=== PATIENT | male | born 1960 | race Two or more races ===

== ENCOUNTER 2017-03-01 18:17 | Inpatient (IN) | payer MEDICAID ==
[~2017-03-01] VITALS: Ht 167.6 cm; Wt 57.3 kg
[2017-03-01 19:11] LABS: Basophils # (auto) 0 uL; Basophils % (auto) 0.5 % (0.0-2.0); CONDITION Y; Eosinophils # (auto) 0 uL; Hematocrit 42.5 % (41.0-53.0); Hemoglobin 14.3 g/dL (13.5-17.5); Lymphocytes # (auto) 0.7 uL; Lymphocytes % (auto) 6.2 % (10.0-50.0); Mean Corpuscular Hemoglobin 30.6 pg (28.0-32.0); Mean Corpuscular Hgb Conc. 33.7 g/dL (32.0-36.0); Mean Corpuscular Volume 90.8 fL (80.0-100.0); Mean Platelet Volume 9.3 fL (7.4-10.4); Monocytes # (auto) 0.2 uL; Monocytes % (auto) 2.2 % (0.0-12.0); Neutrophils # (auto) 9.8 uL; Neutrophils % (auto) 91.1 % (37.0-80.0); Platelet Count (auto) 297 10^3/uL (140-450); Red Cell Distribution Width 14.9 % (11.6-16.0); White Blood Cell 10.7 10^3/uL (4.4-10.8)
[2017-03-01 19:38] LABS: Albumin 3.9 g/dL (3.4-5.0); Anion Gap 11 (5-15); Aspartate Aminotransferase 18 U/L (15-37); BUN/Creatinine Ratio 15.7; Blood Urea Nitrogen 20 mg/dL (7-18); Calcium 8.8 mg/dL (8.5-10.1); Carbon Dioxide 23 mmol/L (21-32); Chloride 120 mmol/L (98-107); GFR African American 75 mL/min; GFR Non-African American 62 mL/min; Glucose 131 mg/dL (74-106); Potassium 4.4 mmol/L (3.5-5.1); Sodium 154 mmol/L (136-145)
[2017-03-01 19:41] LABS: Alkaline Phosphatase 62 U/L (45-117); Bilirubin, Total 0.7 mg/dL (0.2-1.0); Total Protein 6.8 g/dL (6.4-8.2)
[2017-03-01] MEDS ORDERED: SODIUM CHLORIDE 0.9% 1,000 ML IV ONE (20:30)
[2017-03-02] MEDS ORDERED: LORazepam 2MG/ML-1ML VIAL ONE (03:17)
[2017-03-02] MEDS ORDERED: LORazepam 2MG/ML-1ML VIAL IV ONE (03:30)
[2017-03-02 04:22] LABS: Urine Bilirubin Negative (Negative); Urine Blood Negative /uL (Negative); Urine Color Yellow (Yellow); Urine Glucose Normal (Normal); Urine Mucus FEW (None Seen); Urine Nitrite Negative (Negative); Urine RBC 2 /hpf (0 - 3); Urine Squamous Epithelial Cell FEW /hpf (<5); Urine Urobilinogen Normal (Negative); Urine pH 5.5 (5.0-8.0)
[2017-03-02 04:23] LABS: Urine Ketone 1+ (Negative)
[2017-03-02] MEDS ORDERED: ACETAMINOPHEN 325 MG TAB PO PRN (05:15)
[2017-03-02] MEDS ORDERED: ONDANSETRON HCL 4 MG/2 ML VIAL IV PRN (05:15)
[2017-03-02] MEDS ORDERED: MORPHINE SULF INJ 2 MG/ML SYRINGE 1ML IV PRN (05:15)
[2017-03-02] MEDS ORDERED: HYDROcodone-ACET 5/325MG TAB PO PRN (05:15)
[2017-03-02] MEDS ORDERED: NITROGLYCERIN 0.4 MG SL TAB SL PRN (05:15)
[2017-03-02] MEDS: SODIUM CHLORIDE 0.9% 1,000 ML IV SCH ×2 (05:33→18:39)
[2017-03-02] MEDS: ENOXAPARIN SOD 40 MG/0.4 ML SYRINGE SC SCH (10:05)
[2017-03-02] MEDS: FOLIC ACID 1 MG TAB PO SCH (10:05)
[2017-03-02] MEDS: FAMOTIDINE 20 MG TAB PO SCH ×2 (10:05→22:02)
[2017-03-02] MEDS: THIAMINE HCL 100 MG TAB PO SCH (10:05)
[2017-03-02] MEDS ORDERED: DEXTROSE (50%) 50ML SYRG IV PRN (13:30)
[2017-03-02] MEDS: InsuLIN REG 1unit/0.01ml Soln (100units/ml) SC SCH ×2 (17:00→22:00)
[2017-03-02] MEDS: ACCU-CHEK COMFORT CURVE STRIP VI SCH ×2 (17:08→22:02)
[2017-03-02] MEDS ORDERED: LORazepam 2MG/ML-1ML VIAL IV PRN (21:15)
[2017-03-02] MEDS ORDERED: ASPirin 81 mg TAB PO ONE (21:30)
[2017-03-02] MEDS: THIAMINE INJ 100 MG, MULTIPLE VITAMIN 10 ML, FOLIC ACID 1 MG, MAGNESIUM SULF SDV 50% 8 ... IV SCH ×5 (22:20)
[2017-03-03] MEDS: InsuLIN REG 1unit/0.01ml Soln (100units/ml) SC SCH ×4 (06:18→22:00)
[2017-03-03] MEDS: ACCU-CHEK COMFORT CURVE STRIP VI SCH ×4 (06:19→22:00)
[2017-03-03 06:44] LABS: Basophils # (auto) 0 uL; Basophils % (auto) 0.6 % (0.0-2.0); CONDITION Y; Eosinophils # (auto) 0.2 uL; Hematocrit 42.3 % (41.0-53.0); Hemoglobin 14.2 g/dL (13.5-17.5); Mean Corpuscular Hemoglobin 31.4 pg (28.0-32.0); Mean Corpuscular Hgb Conc. 33.5 g/dL (32.0-36.0); Mean Corpuscular Volume 93.7 fL (80.0-100.0); Mean Platelet Volume 9.2 fL (7.4-10.4); Monocytes # (auto) 0.5 uL; Monocytes % (auto) 6.6 % (0.0-12.0); Neutrophils # (auto) 4.9 uL; Neutrophils % (auto) 64.8 % (37.0-80.0); Platelet Count (auto) 230 10^3/uL (140-450); Red Cell Distribution Width 14.6 % (11.6-16.0); White Blood Cell 7.6 10^3/uL (4.4-10.8)
[2017-03-03 07:20] LABS: Vitamin B12 334 pg/mL (211-911)
[2017-03-03 07:22] LABS: Albumin 3.4 g/dL (3.4-5.0); BUN/Creatinine Ratio 22.1; Bilirubin, Total 0.7 mg/dL (0.2-1.0); Calcium 8.4 mg/dL (8.5-10.1); Potassium 3.9 mmol/L (3.5-5.1); Total Protein 6.1 g/dL (6.4-8.2)
[2017-03-03 07:26] LABS: Temperature: 23.1 C (20.0-25.0)
[2017-03-03] MEDS: SODIUM CHLORIDE 0.9% 1,000 ML IV SCH ×2 (08:12→21:33)
[2017-03-03] MEDS ORDERED: ASPirin 81 mg TAB PO SCH (10:00)
[2017-03-03] MEDS: FOLIC ACID 1 MG TAB PO SCH (10:30)
[2017-03-03] MEDS: THIAMINE HCL 100 MG TAB PO SCH (10:30)
[2017-03-03] MEDS: FAMOTIDINE 20 MG TAB PO SCH ×2 (10:30→22:00)
[2017-03-03] MEDS: ENOXAPARIN SOD 40 MG/0.4 ML SYRINGE SC SCH (10:30)
[2017-03-04] VITALS (7 sets, daily range): BP systolic 108–116; BP diastolic 61–80
[2017-03-04] MEDS ORDERED: LORazepam 2MG/ML-1ML VIAL IM ONE (00:01)
[2017-03-04] MEDS ORDERED: HALOPERIDOL LACTATE 5 MG/ML INJ VIAL IM ONE (00:01)
[2017-03-04] MEDS ORDERED: diphenhdrAMINE HCL 50 MG/1 ML VL IM ONE (00:01)
[2017-03-04] MEDS ORDERED: THIAMINE HCL 100 MG/ML 2ML VIAL ONE (02:14)
[2017-03-04] MEDS ORDERED: MVI in SODIUM CHLORIDE 0.9% 1,010 ML ONE (02:14)
[2017-03-04] MEDS: THIAMINE INJ 100 MG, MULTIPLE VITAMIN 10 ML, FOLIC ACID 1 MG, MAGNESIUM SULF SDV 50% 8 ... IV SCH ×10 (03:21→23:13)
[2017-03-04 05:54] LABS: BUN/Creatinine Ratio 16.7; Calcium 8.2 mg/dL (8.5-10.1); Potassium 3.5 mmol/L (3.5-5.1)
[2017-03-04] MEDS: InsuLIN REG 1unit/0.01ml Soln (100units/ml) SC SCH ×4 (07:00→21:26)
[2017-03-04] MEDS: ACCU-CHEK COMFORT CURVE STRIP VI SCH ×4 (07:00→21:26)
[2017-03-04] MEDS: THIAMINE HCL 100 MG TAB PO SCH (10:00)
[2017-03-04] MEDS: FAMOTIDINE 20 MG TAB PO SCH ×2 (10:00→21:26)
[2017-03-04] MEDS: ENOXAPARIN SOD 40 MG/0.4 ML SYRINGE SC SCH (10:00)
[2017-03-04] MEDS: FOLIC ACID 1 MG TAB PO SCH (10:00)
[2017-03-04] MEDS: SODIUM CHLORIDE 0.9% 1,000 ML IV SCH ×2 (10:35→23:55)
[2017-03-04] MEDS ORDERED: LORazepam 2MG/ML-1ML VIAL IV PRN (11:45)
[2017-03-05 05:18] VITALS: BP 118/78
[2017-03-05] MEDS: InsuLIN REG 1unit/0.01ml Soln (100units/ml) SC SCH ×2 (06:18→11:21)
[2017-03-05] MEDS: ACCU-CHEK COMFORT CURVE STRIP VI SCH ×2 (06:18→11:21)
[2017-03-05 06:54] LABS: Potassium 3.7 mmol/L (3.5-5.1)
[2017-03-05 06:58] LABS: BUN/Creatinine Ratio 10.4; Calcium 8.2 mg/dL (8.5-10.1)
[2017-03-05] MEDS: FAMOTIDINE 20 MG TAB PO SCH (09:38)
[2017-03-05] MEDS: THIAMINE HCL 100 MG TAB PO SCH (09:38)
[2017-03-05] MEDS: ENOXAPARIN SOD 40 MG/0.4 ML SYRINGE SC SCH (09:39)
[2017-03-05] MEDS: FOLIC ACID 1 MG TAB PO SCH (09:39)
[2017-03-05] MEDS ORDERED: THIA100T11 PO (10:40)
[2017-03-05 13:00] VITALS: BP 130/87
[2017-03-05] MEDS: SODIUM CHLORIDE 0.9% 1,000 ML IV SCH (13:15)
== END 2017-03-05 14:25 | disposition home or self-care (01) | DRG 52 ==
LOC: ER 18:30 → TELE 18:31 → TELE-WESTW 03-03 23:55
PROVIDERS: ADMIT Nurse Practitioner; ATTEND Nurse Practitioner Acute Care
DX: G92 Toxic encephalopathy (principal); E87.0 Hyperosmolality and hypernatremia; E11.21 Type 2 diabetes mellitus with diabetic nephropathy; F19.10 Other psychoactive substance abuse, uncomplicated; F10.239 Alcohol dependence with withdrawal, unspecified; E86.0 Dehydration; F17.200 Nicotine dependence, unspecified, uncomplicated; N18.2 Chronic kidney disease, stage 2 (mild); E11.22 Type 2 diabetes mellitus with diabetic chronic kidney disease; F15.10 Other stimulant abuse, uncomplicated; G40.909 Epilepsy, unspecified, not intractable, without status epilepticus; J44.9 Chronic obstructive pulmonary disease, unspecified; Z59.0 Homelessness; Z71.89 Other specified counseling; Z90.89 Acquired absence of other organs; J32.0 Chronic maxillary sinusitis
CPT/HCPCS: 36415; 51702; 70450; 70551; 71010; 80048; 80053; 80061; 80307; 80320; 81001; 82607; 82746; 82962; 83036; 84439; 84443; 85025; 93005; 93306; 93886; 95819; 96361; 96374

== ENCOUNTER 2017-03-12 11:38 | Emergency (ER) | payer MEDICAID ==
[~2017-03-12] VITALS: Ht 182.9 cm; Wt 65.8 kg
[~2017-03-12 11:38] MED LIST: THIA100T11 PO
[2017-03-12 13:21] VITALS: BP 117/61
[2017-03-12 13:30] LABS: Basophils # (auto) 0.1 uL; Basophils % (auto) 0.7 % (0.0-2.0); CONDITION Y; Eosinophils # (auto) 0.2 uL; Eosinophils % (auto) 2.3 % (0.0-7.0); Hematocrit 47.3 % (41.0-53.0); Hemoglobin 15.6 g/dL (13.5-17.5); Lymphocytes % (auto) 32.7 % (10.0-50.0); Mean Corpuscular Hemoglobin 30.9 pg (28.0-32.0); Mean Corpuscular Volume 93.5 fL (80.0-100.0); Mean Platelet Volume 9.7 fL (7.4-10.4); Monocytes # (auto) 0.8 uL; Monocytes % (auto) 8.6 % (0.0-12.0); Neutrophils # (auto) 5.1 uL; Neutrophils % (auto) 55.7 % (37.0-80.0); Platelet Count (auto) 301 10^3/uL (140-450); Red Cell Distribution Width 14.8 % (11.6-16.0); White Blood Cell 9.1 10^3/uL (4.4-10.8)
[2017-03-12 13:55] LABS: Albumin 3.7 g/dL (3.4-5.0); Alkaline Phosphatase 61 U/L (45-117); Anion Gap 8 (5-15); Aspartate Aminotransferase 9 U/L (15-37); Bilirubin, Total 0.3 mg/dL (0.2-1.0); Blood Urea Nitrogen 22 mg/dL (7-18); Calcium 8.9 mg/dL (8.5-10.1); Carbon Dioxide 32 mmol/L (21-32); Chloride 102 mmol/L (98-107); GFR African American 147 mL/min; GFR Non-African American 121 mL/min; Glucose 85 mg/dL (74-106); Potassium 4.5 mmol/L (3.5-5.1); Sodium 142 mmol/L (136-145); Total Protein 7.2 g/dL (6.4-8.2)
== END 2017-03-12 14:49 | disposition home or self-care (01) ==
LOC: EDBD 11:38 → ER 11:45
DX: G45.9 Transient cerebral ischemic attack, unspecified (principal); F15.10 Other stimulant abuse, uncomplicated; Z88.8 Allergy status to other drugs, medicaments and biological substances; Z79.899 Other long term (current) drug therapy
CPT/HCPCS: 36415; 70450; 80053; 80307; 80320; 82962; 84484; 85025; 93005

== ENCOUNTER 2018-02-13 11:00 | Inpatient (IN) | payer MEDICAID ==
[~2018-02-13] VITALS: Ht 185.4 cm; Wt 67.4 kg
[~2018-02-13 11:00] MED LIST changes: +THIA100T10 PO; -THIA100T11 PO
[2018-02-13] MEDS ORDERED: SODIUM CHLORIDE 0.9% 1,000 ML IV ONE ×2 (11:06)
[2018-02-13 13:20] LABS: Basophils # (auto) 0 uL; Basophils % (auto) 0.5 % (0.0-2.0); Eosinophils # (auto) 0.1 uL; Eosinophils % (auto) 1.7 % (0.0-7.0); Hematocrit 41.3 % (41.0-53.0); Hemoglobin 13.7 g/dL (13.5-17.5); Lymphocytes # (auto) 1.8 uL; Lymphocytes % (auto) 36.4 % (10.0-50.0); Mean Corpuscular Hemoglobin 30.6 pg (28.0-32.0); Mean Corpuscular Hgb Conc. 33.1 g/dL (32.0-36.0); Mean Corpuscular Volume 92.4 fL (80.0-100.0); Monocytes # (auto) 0.5 uL; Monocytes % (auto) 9.6 % (0.0-12.0); Neutrophils # (auto) 2.6 uL; Neutrophils % (auto) 51.8 % (37.0-80.0); Nucleated Red Blood Cells % 0.2 %; Platelet Count (auto) 199 10^3/uL (140-450); Red Blood Cells 4.47 10^6/uL (4.5-5.90); Red Cell Distribution Width 14.4 % (11.8-14.3)
[2018-02-13 13:39] LABS: Alanine Aminotransferase 18 U/L (16-61); Albumin 3.4 g/dL (3.4-5.0); Alkaline Phosphatase 44 U/L (45-117); Anion Gap 8 (5-15); Aspartate Aminotransferase 10 U/L (15-37); BUN/Creatinine Ratio 17.4; Bilirubin, Total 1.1 mg/dL (0.2-1.0); Blood Urea Nitrogen 15 mg/dL (7-18); Calcium 7.9 mg/dL (8.5-10.1); Carbon Dioxide 25 mmol/L (21-32); Chloride 111 mmol/L (98-107); GFR African American 117 mL/min; GFR Non-African American 97 mL/min; Glucose 86 mg/dL (74-106); Sodium 144 mmol/L (136-145); Total Protein 6.1 g/dL (6.4-8.2)
[2018-02-13 13:41] LABS: INR 1.03 (0.9-1.15); Partial Thromboplastin Time 28.6 sec (23.78-33.04)
[2018-02-13] MEDS ORDERED: FOLIC ACID 1 MG in D5W 5% 50 ML IV ONE (15:00)
[2018-02-13] MEDS ORDERED: THIAMINE 100mg/ml INJ (200mg/2ml VIAL) IV ONE (15:00)
[2018-02-13] MEDS: SODIUM CHLORIDE 0.9% 1,000 ML IV SCH ×2 (15:51→21:56)
[2018-02-13 21:32] VITALS: BP 128/82
[2018-02-13 23:00] VITALS: BP 124/89
[2018-02-14] MEDS ORDERED: LORazepam 0.5 MG TAB PO PRN
[2018-02-14 04:44] LABS: Urine WBC None Seen /hpf (0 - 3)
[2018-02-14 05:02] LABS: Urine Bacteria NONE SEEN /hpf (None Seen); Urine Blood Negative /uL (Negative); Urine Specific Gravity 1.008 (1.001-1.035)
[2018-02-14 05:12] VITALS: BP 118/63
[2018-02-14 05:16] LABS: Alcohol, Urine < 3.0 mg/dL (0-5); Amphetamine Screen, Urine NEGATIVE (NEGATIVE); Barbiturate Scree,Urine NEGATIVE (NEGATIVE); Benzodiazephine Screen, Urine NEGATIVE (NEGATIVE); Cannabinoid Screen, Urine NEGATIVE (NEGATIVE); Cocaine Screen, Urine NEGATIVE (NEGATIVE); Opiate Scree,Urine NEGATIVE (NEGATIVE); Phencyclidine Screen, Urine NEGATIVE (NEGATIVE)
[2018-02-14 07:40] LABS: Basophils # (auto) 0 uL; Basophils % (auto) 0.5 % (0.0-2.0); Eosinophils # (auto) 0.1 uL; Eosinophils % (auto) 1.2 % (0.0-7.0); Hematocrit 41.3 % (41.0-53.0); Hemoglobin 14.4 g/dL (13.5-17.5); Lymphocytes # (auto) 1.9 uL; Mean Corpuscular Hemoglobin 31.9 pg (28.0-32.0); Mean Corpuscular Hgb Conc. 34.9 g/dL (32.0-36.0); Mean Corpuscular Volume 91.5 fL (80.0-100.0); Monocytes # (auto) 0.6 uL; Monocytes % (auto) 8.1 % (0.0-12.0); Neutrophils # (auto) 4.4 uL; Neutrophils % (auto) 63.2 % (37.0-80.0); Nucleated Red Blood Cells % 0.3 %; Platelet Count (auto) 210 10^3/uL (140-450); Red Blood Cells 4.52 10^6/uL (4.5-5.90); Red Cell Distribution Width 14.1 % (11.8-14.3); White Blood Cell 6.9 10^3/uL (4.4-10.8)
[2018-02-14 07:57] LABS: Albumin 3.7 g/dL (3.4-5.0); BUN/Creatinine Ratio 12.5; Bilirubin, Total 1.4 mg/dL (0.2-1.0); Calcium 8.2 mg/dL (8.5-10.1); Magnesium 2.2 mg/dL (1.6-2.6); Phosphorus 2.4 mg/dL (2.5-4.90); Potassium 3.4 mmol/L (3.5-5.1); Total Protein 6.5 g/dL (6.4-8.2)
[2018-02-14 09:00] VITALS: BP_SYST 112; BP_SYST 130; BP_DIAS 56; BP_DIAS 80
[2018-02-14] MEDS: THIAMINE 100mg/ml INJ (200mg/2ml VIAL) IV SCH (11:09)
[2018-02-14] MEDS: SODIUM CHLORIDE 0.9% 1,000 ML IV SCH ×2 (12:17→19:42)
[2018-02-14 13:00] VITALS: BP_SYST 126; BP_SYST 99; BP_DIAS 59; BP_DIAS 83
[2018-02-14] MEDS: FOLIC ACID 1 MG in D5W 5% 50 ML IV SCH (13:16)
[2018-02-14] MEDS ORDERED: POTASSIUM CHL 20 Meq TABLET PO ONE (13:30)
[2018-02-14] MEDS ORDERED: HALOPERIDOL LACTATE 5 MG/ML INJ VIAL IM PRN (13:30)
[2018-02-14] MEDS ORDERED: LORazepam 2MG/ML-1ML VIAL IV PRN (13:30)
[2018-02-14 17:00] VITALS: BP 114/63
[2018-02-14 21:51] VITALS: BP 115/77
[2018-02-14 22:00] VITALS: BP 115/77
[2018-02-15 05:00] VITALS: BP 117/75
[2018-02-15 05:04] VITALS: BP 117/75
[2018-02-15] MEDS: SODIUM CHLORIDE 0.9% 1,000 ML IV SCH ×3 (05:15→22:15)
[2018-02-15 08:00] VITALS: BP 120/88
[2018-02-15 09:00] VITALS: BP 120/88
[2018-02-15] MEDS: THIAMINE 100mg/ml INJ (200mg/2ml VIAL) IV SCH (09:48)
[2018-02-15] MEDS: FOLIC ACID 1 MG in D5W 5% 50 ML IV SCH (14:00)
[2018-02-15] MEDS ORDERED: CYANOCOBALAMIN (B-12) 1000 MCG/1 ML VIAL SUBCUT ONE (14:15)
[2018-02-15 16:09] VITALS: BP 123/73
[2018-02-15] MEDS ORDERED: HALOPERIDOL LACTATE 5 MG/ML INJ VIAL IM PRN (20:00)
[2018-02-15] MEDS ORDERED: LORazepam 2MG/ML-1ML VIAL IV PRN (20:00)
[2018-02-15 22:21] VITALS: BP 129/83
[2018-02-16 05:28] VITALS: BP 93/66
[2018-02-16 08:00] VITALS: BP 100/70
[2018-02-16 08:18] VITALS: BP 100/70
[2018-02-16] MEDS ORDERED: CYANOCOBALAMIN 500 MCG TAB PO SCH (10:00)
[2018-02-16] MEDS: THIAMINE 100mg/ml INJ (200mg/2ml VIAL) IV SCH (11:11)
[2018-02-16 12:00] VITALS: BP 104/72
[2018-02-16] MEDS: FOLIC ACID 1 MG in D5W 5% 50 ML IV SCH (14:41)
[2018-02-16] MEDS: SODIUM CHLORIDE 0.9% 1,000 ML IV SCH (14:42)
[2018-02-16] MEDS ORDERED: FOLIC ACID 1 MG TAB PO SCH (16:00)
[2018-02-16 17:00] VITALS: BP 103/50
[2018-02-16] MEDS: BOOST PLUS 8 ounce PO SCH (18:00)
[2018-02-16 21:38] VITALS: BP 98/59
[2018-02-17 03:45] VITALS: BP 115/66
[2018-02-17 06:26] LABS: BUN/Creatinine Ratio 13.1; Calcium 8.5 mg/dL (8.5-10.1); Magnesium 2.3 mg/dL (1.6-2.6); Potassium 3.8 mmol/L (3.5-5.1)
[2018-02-17] MEDS: BOOST PLUS 8 ounce PO SCH ×3 (08:00→18:00)
[2018-02-17 08:44] VITALS: BP 108/73
[2018-02-17] MEDS: CYANOCOBALAMIN 500 MCG TAB PO SCH (10:10)
[2018-02-17] MEDS: THIAMINE 100mg/ml INJ (200mg/2ml VIAL) IV SCH (10:10)
[2018-02-17] MEDS: FOLIC ACID 1 MG TAB PO SCH (10:11)
[2018-02-17 13:08] VITALS: BP 145/90
[2018-02-17 17:10] VITALS: BP 97/66
[2018-02-17 21:34] VITALS: BP 123/89
[2018-02-18 04:51] VITALS: BP 95/52
[2018-02-18 09:00] VITALS: BP 100/69
[2018-02-18] MEDS: THIAMINE HCL 100 MG TAB PO SCH (09:51)
[2018-02-18] MEDS: FOLIC ACID 1 MG TAB PO SCH (09:52)
[2018-02-18] MEDS: CYANOCOBALAMIN 500 MCG TAB PO SCH (10:00)
[2018-02-18] MEDS: BOOST PLUS 8 ounce PO SCH ×3 (11:35→18:02)
[2018-02-18 13:00] VITALS: BP 127/80
[2018-02-18 17:32] VITALS: BP 115/65
[2018-02-18 22:11] VITALS: BP 119/76
[2018-02-19 05:18] VITALS: BP 115/70
[2018-02-19 08:02] VITALS: BP 119/80
[2018-02-19] MEDS: BOOST PLUS 8 ounce PO SCH ×3 (08:28→18:23)
[2018-02-19] MEDS: FOLIC ACID 1 MG TAB PO SCH (09:37)
[2018-02-19] MEDS: CYANOCOBALAMIN 500 MCG TAB PO SCH (09:37)
[2018-02-19] MEDS: THIAMINE HCL 100 MG TAB PO SCH (09:37)
[2018-02-19 12:52] VITALS: BP 109/69
[2018-02-19 16:45] VITALS: BP_SYST 103; BP_SYST 110; BP_DIAS 63; BP_DIAS 71
[2018-02-19 22:05] VITALS: BP 91/64
[2018-02-20 05:19] VITALS: BP 122/78
[2018-02-20 08:15] VITALS: BP 121/78
[2018-02-20] MEDS: BOOST PLUS 8 ounce PO SCH ×3 (08:42→18:48)
[2018-02-20 09:00] VITALS: BP 121/76
[2018-02-20] MEDS: THIAMINE HCL 100 MG TAB PO SCH (10:08)
[2018-02-20] MEDS: FOLIC ACID 1 MG TAB PO SCH (10:08)
[2018-02-20] MEDS: CYANOCOBALAMIN 500 MCG TAB PO SCH (10:08)
[2018-02-20 13:00] VITALS: BP 113/92
[2018-02-20 17:00] VITALS: BP 128/92
[2018-02-20 22:01] VITALS: BP 114/77
[2018-02-21 05:30] VITALS: BP 116/79
[2018-02-21 07:31] VITALS: BP 103/86
[2018-02-21 08:00] VITALS: BP 103/86
[2018-02-21] MEDS: THIAMINE HCL 100 MG TAB PO SCH (10:27)
[2018-02-21] MEDS: FOLIC ACID 1 MG TAB PO SCH (10:27)
[2018-02-21] MEDS: BOOST PLUS 8 ounce PO SCH ×3 (10:27→18:08)
[2018-02-21] MEDS: CYANOCOBALAMIN 500 MCG TAB PO SCH (10:27)
[2018-02-21 12:11] VITALS: BP 110/83
[2018-02-21 17:21] VITALS: BP 103/86
[2018-02-21 18:05] VITALS: BP 115/78
== END 2018-02-21 18:00 | disposition home or self-care (01) | DRG 52 ==
LOC: EDBD 11:00 → ER 11:00 → OVERFLOW 11:01 → WEST WING 20:16
PROVIDERS: ADMIT Internal Medicine; ATTEND Internal Medicine
DX: G93.41 Metabolic encephalopathy (principal); F03.90 Unspecified dementia, unspecified severity, without behavioral disturbance, psychotic disturbance, mood disturbance, and anxiety; F10.26 Alcohol dependence with alcohol-induced persisting amnestic disorder; E53.8 Deficiency of other specified B group vitamins; J44.9 Chronic obstructive pulmonary disease, unspecified; F04 Amnestic disorder due to known physiological condition; F17.200 Nicotine dependence, unspecified, uncomplicated; G40.909 Epilepsy, unspecified, not intractable, without status epilepticus
CPT/HCPCS: 36415; 70450; 70551; 71045; 80048; 80053; 80307; 81001; 82140; 82607; 82962; 83735; 83880; 84100; 84443; 84484; 85025; 85610; 85730; 93005; 95819; 96361; 96374; J7060